=== PATIENT | female | born 2000 | race African-American/Black ===

== ENCOUNTER 2024-04-02 22:21 | Inpatient (IN) | payer OTHER ==
[~2024-04-02] VITALS: Ht 154.9 cm; Wt 67.7 kg
--- NOTE | 2024-04-02 22:40 | NUR ---
This RN to bedside and assuming care of patient from [facility]. Admission assessmest started. Pt appears to be uncomfortable with contractions. Denies loss of fluid or vaginal bleeding. Reports movement like normal. Pt gets care at [facility] but was told from their labor and delivery unit to present here. Denies problems with this . Reports she is GBS - and passed her glucose test. Reviewed plan of care with patient and spouse, questions invited and answered.
[2024-04-02] MEDS ORDERED: PRENATAL TABLET PO (22:45)
[2024-04-02] MEDS ORDERED: FERROUSAL325 MG PO (22:47)
--- NOTE | 2024-04-02 22:50 | NUR ---
DR SCOTTY OSORIO NOTIFIED PT HERE FROM [facility] DUE TO THEM BEING ON DIVERSION TONIGHT. INFORMED SHE HAS BEEN HAVING CTX'S SINCE 1899, BLOOD SHOW NOTED, SVE /-2. CTX'S EVERY 2-3 MINS. PT CRYING AND THRASING IN BED WITH CTX'S. FHR CATEGORY 1. ORDERS TO ADMIT, MAY HAVE EPIDURAL.
[2024-04-02 23:00] VITALS: BP 135/84; PULSE 75; TEMP 98.1
[2024-04-02] MEDS ORDERED: LR & Oxytocin 500 ML IV SCH (23:00)
[2024-04-02] MEDS ORDERED: LR 1,000 ML IV SCH (23:00)
[2024-04-02 23:30] VITALS: BP 124/74; PULSE 79
--- NOTE | 2024-04-02 23:30 | NUR ---
18G IV started in right forearm with 1 attempt. Admission labs obtained off IV start. Lactated Ringers infusing to gravity. Consents reviewed and signed with patient and spouse, verbalized understanding. All questions answered.
[2024-04-02 23:46] LABS: BASO % 0.1 % (0.0-2.0); EOS % 0.3 % (0.0-4.0); GRAN # 7.7 K/mm3 (1.4-6.5); GRAN % 65.4 % (42.2-75.2); HEMATOCRIT 40.9 % (37.0-47.0); HEMOGLOBIN 13.8 g/dl (12.5-16.0); LYMPH # 2.8 K/mm3 (1.2-3.4); LYMPH % 23.9 % (20.0-51.0); MEAN CELL VOLUME 98 fl (80.0-100.0); MEAN CORPUSCULAR HEMOGLOBIN 33 pg (27-31); MEAN CORPUSCULAR HGB CONC 34 g/dl (33.0-37.0); MEAN PLATELET VOLUME 10.4 fl (7.4-10.4); MONO # 1.1 K/mm3 (0.1-0.6); MONO % 9.1 % (1.7-9.3); PLATELET COUNT 209 K/mm3 (130-400); RED BLOOD COUNT 4.16 M/mm3 (4.10-5.30); REDCELL DISTRIBUTION WIDTH-CV 13.1 % (11.5-14.5)
[2024-04-03] VITALS (68 sets, daily range): BP systolic 92–159; BP diastolic 50–87; PULSE 56–113; TEMP 98–98.7
--- NOTE | 2024-04-03 | NUR ---
Late deceleration down to 60 bpm audible with this nurse at bedside. Pt repositioned to right side with return to baseline of 125 bpm after about 4 minutes.
--- NOTE | 2024-04-03 00:56 | NUR ---
0022 - Pt requesting epidural. Idris Garvey CRNA notified, will come to hospital. 0045 - Pt positioned to sitting on edge of bed. 0050 - RIGOBERTO Lopez at bedside. Epidural procedure, risks, and benefits reviewed with patient and spouse, verbalized understanding. 0056 - Single shot by RIGOBERTO Lopez, pt denies any adverse reactions. 0102 - Pt positioned to wedge left with pillow support. Safety precautions reviewed. Call light within reach, bed in low and locked position. See anesthesia record.
[2024-04-03] MEDS ORDERED: ePHEDrine 50 MG/10 ML VIAL IV PRN (01:00)
[2024-04-03] MEDS ORDERED: diphenhydrAMINE 25 MG CAP PO PRN (01:00)
[2024-04-03] MEDS ORDERED: Naloxone 0.4 MG/ML VIAL IV PRN ×2 (01:00→17:30)
[2024-04-03] MEDS ORDERED: diphenhydrAMINE 50 MG/ML 1 ML VIAL IV PRN (01:00)
[2024-04-03] MEDS ORDERED: Ondansetron 4 MG/2 ML VIAL IV PRN (01:00)
[2024-04-03] MEDS ORDERED: ROPivacaine PF 0.2% 200 ML IV ONE (01:02)
--- NOTE | 2024-04-03 01:45 | NUR ---
Ruiz catheter placed to dependent drainage. Clear, yellow urine out. Secured to leg with statlock. SVE /-2 with bloody show. Membranes intact. Pt positioned to right side lying with pillow support for comfort.
--- NOTE | 2024-04-03 06:15 | NUR ---
RECEIVED REPORT, RN AT BEDSIDE, RENTERIA, IV, AND EPIDURAL CHECKED. PT COMFORTABLE WITH POC.
--- NOTE | 2024-04-03 08:46 | NUR ---
DR. TONEY AT BEDSIDE FOR SVE AND AROM. AROM MOD AMOUNT OF MEC FLUID, SVE 7-8/80/-1. PT TOLERATED WELL. EFM CAT 1.
[2024-04-03] MEDS ORDERED: Influenza Virus Vaccine, Trivalent '24-25 0.5 ML SYRINGE IM SCH (09:00)
--- NOTE | 2024-04-03 16:05 | NUR ---
1235 PT 0. RENTERIA REMOVED. STARTED PUSHING 1549 NOTIFED OF LATE DECELERATIONS AND NEED FOR DELIVERY. 1558 AT BEDSIDE FOR DELIVERY. CHARGE, NURSERY, AND DR. BILL AT BEDSIDE. 1605 OF VIABLE MALE INFANT PER . INFANT SUCTIONED, DAD CUT CORD, AND TAKEN TO WARMER D/T THICK MECONIUM. PITOCIN STOPPED. 1610 OF PLACENTA PER . CORD GASES DRAWN BY . CORD BLOOD TAKEN BY [facility]. ESPERANZA KELLY, FUNDUS FIRM AT U. EPIDURAL BOLUSED AT THIS TIME D/T INTOLERANCE OF FUNDAL MASSAGED. 2ND DEGREE LACERATION REPAIRED. VS STABLE. ROOM PUT BACK TOGETHER, ICE PACK PAD PLACED. SKIN TO SKIN WITH MOM.
[2024-04-03] MEDS ORDERED: Magnes Hydrox (MOM) 80 MG/ML 30 ML CUP PO PRN (16:45)
[2024-04-03] MEDS ORDERED: Loratadine 10 MG TAB PO PRN (16:45)
[2024-04-03] MEDS ORDERED: Sennosides/Docusate 8.6-50 MG TAB PO SCH (17:00)
[2024-04-03] MEDS ORDERED: Mag/Al Hydrox/Simeth Susp 30 ML CUP PO PRN (17:30)
[2024-04-03] MEDS ORDERED: Ibuprofen 800 MG TAB PO SCH (17:30)
[2024-04-03] MEDS ORDERED: Witch Hazel 50% Pads Bulk TUB TP PRN (17:30)
[2024-04-03] MEDS ORDERED: Measles/Mumps/Rubella Virus Vaccine Live w Diluent 0.5 ML VIAL SQ SCH (17:30)
[2024-04-03] MEDS ORDERED: Acetaminophen 500 MG TAB PO SCH (17:30)
[2024-04-03] MEDS ORDERED: Phenylephrine/Mineral Oil/Petrolatum 57 GM TUBE RC PRN (17:30)
[2024-04-03] MEDS ORDERED: oxyCODONE 5 MG TAB PO PRN (17:30)
[2024-04-03] MEDS ORDERED: traZODone 50 MG TAB PO PRN (21:00)
[2024-04-04 03:30] VITALS: BP 105/52; PULSE 72; TEMP 97.7
[2024-04-04 09:35] VITALS: BP 115/57; PULSE 78; TEMP 97.9
--- NOTE | 2024-04-04 09:35 | NUR ---
Initial visit attempt; Socal Worker with family, Derrick Operator left card of congratulations and God's blessings for the of their son and information regarding the availability of Spiritual Care at [facility].
--- NOTE | 2024-04-04 13:10 | NUR ---
SW received consult to meet with patient for resources. SW met with patient and Jeremiah Palencia ([phone]) in room. is active at [place]. They live on [address] since [address] and admit to having limited financial resources. Patient's primary care and pharmacy is [facility]. Patient states that she had routine pre-demetrio care at [place] and was sent to this hospital for delivery due to [place] [facility] being on divert. Patient is covered by [employer] insurance through her . This is their first baby. Patient did not speak much during assessment and did most of the talking for them. He reports that he is from [place] and patient's family is in [place]. He reports that patient has not worked during and will not work for several months after delivery. Jeremiah reports that they have a car seat, clothes, breast pump and a bed for baby. Patient is on WIC and will add baby upon their return home. Jeremiah states that they had difficulty affording food on his salary prior to patient getting on WIC but he states "I'm doing the best to make sure baby has everything needed." He repeated that he's setting priorities for his child. Patient and deny having diapers or bottles for baby, but state that patient is breast feeding baby. KULDEEP provided information for Maternal and Child Health information, [facility] for assistance with diapers, formula and supplies. KULDEEP spoke with RN caring for patient and was told that there were no concerns other than them needing resources.
[2024-04-04] MEDS ORDERED: Rho(D) Imm Globulin 1,500 UNITS (300 MCG)/2 ML SYRINGE IV\\IM SCH (15:00)
[2024-04-04 17:45] VITALS: BP 91/58; PULSE 64; TEMP 98
[2024-04-04 19:30] VITALS: BP 111/75; PULSE 60; TEMP 97.6
[2024-04-05 03:30] VITALS: BP 114/63; PULSE 55; TEMP 98.1
--- NOTE | 2024-04-05 03:30 | NUR ---
PATIENT COMPLAINING OF INCREASING PAIN IN ABDOMEN FOLLOWING BREAST FEEDING. PATIENT ALSO COMPLAINS OF PAIN TO PERINEUM FOLLOWING FIRST BM SINCE VAGINAL . PATIENT REQUESTS PRN PAIN MEDICATION FOR PAIN OF 8/10 ON NUMERIC PAIN SCALE. VITAL SIGNS ASSESSED AND WNL; FUNDUS FIRM AND DOWN 1 FINGERBREADTH. BLEEDING ON PAD SCANT AND PATIENT REPORTS NO CLOTS. PATIENT EDUCATED ON UTERINE CONTRACTIONS DURING , PROVIDED WITH REQUESTED PRN PAIN MEDICATION, ICE PACK FOR PERINEUM, AND REQUESTED SNACK.
--- NOTE | 2024-04-05 05:00 | NUR ---
PATIENT PAIN REASSESSED FOLLOWING PRN PAIN MEDICATION. PATIENT SITTING ON BENCH IN ROOM, HOLDING AND BABY. PATIENT REPORTS PAIN REDUCED FROM 8/10 TO 6/10. PATIENT REQUESTS ADDITIONAL PERINEAL ICE PACKS TO TAKE HOME. THIS RN PROVIDES 2 ICE PACKS AND PLACES THEM IN PATIENT BATHROOM. PATIENT STATES NO OTHER QUESTIONS OR CONCERNS AT THIS TIME.
[2024-04-05 09:00] VITALS: BP 116/81; PULSE 65; TEMP 98.1
[2024-04-05] MEDS ORDERED: Influenza Virus Vaccine, Trivalent '24-25 0.5 ML SYRINGE IM SCH (09:00)
[2024-04-05] MEDS ORDERED: IBU800 M1 PO (11:53)
== END 2024-04-05 13:15 | disposition home or self-care (01) | DRG 560 ==
LOC: LDRO 22:21 → OB 23:00 → LDR 23:00 → OB 04-03 19:59
PROVIDERS: ADMIT Obstetrics & Gynecology
PROC: 10E0XZZ Delivery of Products of Conception, External Approach (ICD-10-PCS; principal; 2024-04-02)
PROC: 0KQM0ZZ Repair Perineum Muscle, Open Approach (ICD-10-PCS; 2024-04-02)
PROC: 3E0234Z Introduction of Serum, Toxoid and Vaccine into Muscle, Percutaneous Approach (ICD-10-PCS; 2024-04-04)
DX: O99.02 Anemia complicating childbirth (principal); Z37.0 Single live birth; D64.9 Anemia, unspecified; O70.1 Second degree perineal laceration during delivery; O77.0 Labor and delivery complicated by meconium in amniotic fluid; O99.613 Diseases of the digestive system complicating pregnancy, third trimester; K21.9 Gastro-esophageal reflux disease without esophagitis; O26.893 Other specified pregnancy related conditions, third trimester; Z3A.39 39 weeks gestation of pregnancy
CPT/HCPCS: J2590; J2791; J2795; J7120